=== PATIENT | male | born 1935 | race Caucasian/White ===

== ENCOUNTER 2016-08-14 14:54 | Emergency (ER) | payer MEDICARE ==
[~2016-08-14] VITALS: Ht 180.3 cm; Wt 79.5 kg
[~2016-08-14 14:54] MED LIST: AMLO5TAB2 PO; CITA10TA9 PO; LVCR25100 PO; METO50TA3 PO; WARF5TAB7 PO
[2016-08-14 14:58] VITALS: BP 116/73; PULSE 57; RESP 14; O2SAT 97
--- NOTE | 2016-08-14 15:50 | ED.REPORT ---
HPI-Head Prob / Injury Date of Service Aug 14, 2016 ED Provider: Dr. Hedrick 80 year old male with a history of Parkinson's, HTN and Afib on Warfarin who presents to the ER following a fall this morning. His states that he was walking when he lost his footing, fell backwards and hit his occiput. Pt denies LOC, head pain, neck pain and nausea. PCP: Jamal Nursing Notes Stated Complaint: HAD A FALL, HAS PARKINSONS Chief Complaint: Head, Face, Neck Trauma Nursing Notes Reviewed: Yes Allergies: Coded Allergies: Penicillins (Verified Allergy, Severe, rash, 08/14/16) lorazepam (Verified Adverse Reaction, Severe, Hallucinations, 08/14/16) PARADOXICAL REACTION/NIGHTMARES/HALLUCINATION oxycodone (Verified Adverse Reaction, Severe, delusional, 08/14/16) Scheduled Amlodipine (Amlodipine) 5 Mg Tablet 5 MG PO DAILY Carbidopa/Levodopa 25-100 mg (Sinemet 25-100 mg) 1 Ea Tab 1 EA PO BID Citalopram (Citalopram) 10 Mg Tablet 10 MG PO DAILY Metoprolol Tartrate (Metoprolol Tartrate) 50 Mg Tablet 25 MG PO BID Warfarin Sodium (Warfarin Sodium) 5 Mg Tablet 5 MG PO HS General Time Seen by Provider: 16:16 Chief Complaint Blunt head trauma Hx Obtained From: Patient, Spouse Arrived By: Wheelchair Onset Occurred: Just prior to arrival Symptom Duration: Since onset Context: Occurred at: Home Severity: Current: No pain currently Associated with: Denies: Loss of consciousness, Nausea Risk-Head Prob / Injury Head CT Imaging Inclusion Criteria: >/= 16 yo age GCS of 14 OR 15 Non Pentrating Injury Presentation w/in 24 hrs. Patient Presents WITHOUT: Loss of Conciousness, PostTraumatic Amnesia, PROCEED W/ CONSIDERATIONS Consider Non Contrast CT for: >/= 60 yo Age RF Statements: Risk factors reviewed Past Medical History Past Medical History Parkinsons chronic AF HTN anticoagulated on Coumadin Reports: Diabetes mellitus, Hypertension Past Surgical History Hernia repair Knee replacement FX CLAVICLE Smoking History Former Smoker Social History Lives with . 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 Alcohol Use: "Social" Drug Use: Denies drug use Other Social History: , Local resident Occupation 1 story house, 2 steps into house Ambulatory Status Independent Review of Systems Basic Review of Systems Respiratory: No shortness of breath, No cough, No wheeze Cardiovascular: No chest pain, No dyspnea on exertion, No orthopnea, No parox noct dyspnea, No palpitations Psychiatric: Normal thought content Constitutional: Denies: Fever GI: Denies: Nausea, Vomiting Musculoskeletal: Denies: Extremity pain, Neck pain Neurologic: Denies: Change LOC, Headache Complete sys rev & neg: except as marked. Physical Exam Initial Vital Signs Vital Signs (First) Date Time Temp Pulse Resp B/P Pulse Ox O2 Delivery O2 Flow Rate FiO2 08/14/16 14:58 36.4 57 14 116/73 97 Room Air Initial VS: Reviewed Respiratory: Breath sounds normal, Clear to auscultation, No respiratory distress Cardiovascular: Regular rate & rhythm, Heart sounds normal, Intact distal pulses Extremities: Vascular intact, Neuro intact, No swelling, No tenderness Skin: Warm, Dry, No cyanosis Psychiatric: Mood/affect normal, Behavior normal, Normal thought content General/Constitutional: Awake, Alert Head / Eyes: Atraumatic (No scalp hematomas), Normocephalic, PERRL Neck: Supple, Non-tender, No midline vertebral tend Neurologic: Oriented X3, Speech NL Parkinsonian movements Interpretation & Diagnostics Lab Results Interpretation Result Diagram: 08/14/16 1650 Test 08/14/16 16:50 White Blood Count 7.4th/mm3 (3.8-10.1) Red Blood Count 4.25mil/mm3 (4.40-5.80) Hemoglobin 12.2g/dL (13.8-17.2) Hematocrit 36.9% (41.0-50.0) Mean Corpuscular Volume 86.8fL (81-100) Mean Corpuscular Hemoglobin 28.7pg (27.0-35.0) Mean Corpuscular Hemoglobin Concent 33.1% (32.0-37.0) Red Cell Distribution Width 14.3% (12.3-15.4) Platelet Count 253bil/L (150-400) Neutrophils (%) (Auto) 69.4% (40-74) Lymphocytes (%) (Auto) 19.1% (14-46) Monocytes (%) (Auto) 9.5% (4-12) Eosinophils (%) (Auto) 1.6% (0-5) Basophils (%) (Auto) 0.1% (0-3) Prothrombin Time 18.4sec (8.1-12.5) Prothromb Time International Ratio 1.70ratio Hold [place] Top Tube Received (Received) General Lab Results Interp 1: Labs reviewed CT Head Interpretation IMPRESSION: 1. No acute intracranial abnormalities. No intracranial bleed. 2. Cerebral volume loss and chronic microvascular ischemic changes. Dictated by: Mahad Bland M.D. on 08/14/2016 at 15:53 Study: Head CT no contrast Interpretation / Wet Read by: Interpret - Radiologist Re-Eval/Medical Decision Source of Hx: Old records Re-Evaluation/Progress : Time of Eval: 18:03 Patient Status: Condition improved Re-Evaluation/Progress Note: Updated pt of labs and imaging results. Discussed plan for discharge and follow up. All questions addressed. Counseled Regarding: Diagnosis, Lab results, Need for follow-up, When/why to return to ED Discharge & Departure Primary Impression: Fall at home Encounter type: initial encounter Qualified Code: W19.XXXA - Unspecified fall, initial encounter Additional Impression: Anticoagulated on Coumadin Disposition: Home All VS Reviewed: Yes Condition: Improved Additional Instructions: Your emergency room visit today included interview, examination and head CT. Your INR today was 1.7 which is slightly low. Continue your previous Warfarin dosing and have his levels rechecked soon. There was no significant signs of trauma to the head and the CT scan of the head came back negative. There is a chance of delayed bleeding. Return to the ER for headaches, vomiting , new urine incontinence or increased unsteadiness. Referrals: Kale Berry MD (PCP) Scribe Attestation Portions of this note were transcribed by Josefa Fernández. I, (Dr. Hedrick) personally performed the history, physical exam and medical decision-making; I reviewed and confirmed the accuracy of the information in the transcribed note. Signed by: Josefa Fernández. Rosalio, 08/14/2016, [id number] copies to: Kale Berry MD, Donald L MD Aug 14, 2016 15:50 Josefa Fernández Aug 14, 2016 16:22
--- NOTE | 2016-08-14 15:56 | DRSVH ---
PROCEDURE: CT BRAIN WITHOUT CONTRAST ([id number]) INDICATIONS: 80 year-old man with fall. TECHNIQUE: Noncontrast 4.5 mm thick angled axial sections acquired from the foramen magnum to the vertex, with c oronal reformats. COMPARISON: [facility], CT, BRAIN W/O CONTRAST, 05/20/2014, 6:30. FINDINGS: Image quality: Excellent. CSF spaces: Basal cisterns are patent. No extra-axial fluid collections. The ventricles are symmet benji in size and shape. Brain: No intracranial bleeds or masses. There is mild to moderate cerebral volume loss for age, wi th resultant ventricular and sulcal prominence. There are moderate periventricular and deep white ma tter chronic small vessel ischemic changes. There is intracranial internal carotid artery and verteb ral artery atherosclerosis. Skull and face: Calvarium and visualized facial bones appear intact, without suspicious lesions. Sinuses: Visualized sinuses and mastoids are clear. IMPRESSION: 1. No acute intracranial abnormalities. No intracranial bleed. 2. Cerebral volume loss and chronic microvascular ischemic changes. Dictated by: Mahad Bland M.D. on 08/14/2016 at 15:53 Approved by: Mahad Bland M.D. on 08/14/2016 at 15:55
[2016-08-14 17:02] LABS: BASOPHILS % (AUTO) 0.1 % (0-3); EOSINOPHILS % (AUTO) 1.6 % (0-5); MONOCYTES % (AUTO) 9.5 % (4-12); Mean Corpuscular Hemoglobin 28.7 pg (27.0-35.0); Mean Corpuscular Volume 86.8 fL (81-100); NEUTROPHILS % (AUTO) 69.4 % (40-74); Platelet Count 253 bil/L (150-400)
[2016-08-14 17:18] LABS: INR 1.7 ratio
[2016-08-14 18:03] VITALS: BP 132/70; PULSE 53; RESP 20; O2SAT 100
[2016-08-14 18:35] VITALS: BP 132/70; PULSE 53; RESP 20; O2SAT 100
== END 2016-08-14 18:36 | disposition home or self-care (01) ==
LOC: SED 14:54
DX: S09.90XA Unspecified injury of head, initial encounter (principal); W18.39XA Other fall on same level, initial encounter; Y93.01 Activity, walking, marching and hiking; Y92.009 Unspecified place in unspecified non-institutional (private) residence as the place of occurrence of the external cause; Y99.8 Other external cause status; I11.9 Hypertensive heart disease without heart failure; E11.59 Type 2 diabetes mellitus with other circulatory complications; I48.2 Chronic atrial fibrillation; G20 Parkinson's disease; Z79.01 Long term (current) use of anticoagulants; Z88.0 Allergy status to penicillin; Z88.5 Allergy status to narcotic agent